=== PATIENT | male | born 1940 | race Caucasian/White ===

== ENCOUNTER 2016-12-29 10:03 | Inpatient (IN) | payer MEDICARE ==
[2016-12-29] VITALS (20 sets, daily range): BP systolic 144–221; BP diastolic 76–158; PULSE 73–101; RESP 16–31; TEMP 98.8–99; O2SAT 93–99
[~2016-12-29] VITALS: Ht 177.8 cm; Wt 77.1 kg
[2016-12-29] MEDS ORDERED: ASPIRIN 81 MG CHEW TAB PO ONE (10:30)
[2016-12-29] MEDS: NITROGLYCERIN 0.4 MG SL 25 TABS/BTL SL SCH ×3 (10:32→10:42)
[2016-12-29 10:58] LABS: AUTOMATED NEUTROPHIL # 8.5 TH/MM3 (1.8-7.7); BASOPHIL % 0.3 % (0.0-2.0); EOSINOPHIL % 0.3 % (0.0-4.0); HEMATOCRIT 32.7 % (39.0-51.0); HEMO FLAGS DIFF FINAL; LYMPH % 16.2 % (9.0-44.0); LYMPHOCYTE # 1.9 TH/MM3 (1.0-4.8); MEAN CELL VOLUME 92.1 FL (80.0-100.0); MEAN CORPUSCULAR HEMOGLOBIN 30.9 PG (27.0-34.0); MEAN CORPUSCULAR HGB CONC 33.6 % (32.0-36.0); MONO % 8.6 % (0.0-8.0); NEUT % 74.6 % (16.0-70.0); PLATELET COUNT 204 TH/MM3 (150-450); RED BLOOD COUNT 3.55 MIL/MM3 (4.50-5.90); WHITE BLOOD COUNT 11.4 TH/MM3 (4.0-11.0)
--- NOTE | 2016-12-29 11:01 | RADRPT ---
EXAM DATE/TIME: 12/29/2016 10:28 [facility] COMPARISON: No previous studies available for comparison. INDICATIONS : Chest pain. MEDICAL HISTORY : None. SURGICAL HISTORY : 3 cardiac stents. ENCOUNTER: Initial ACUITY: 2 days PAIN SCORE: 6/10 LOCATION: chest FINDINGS: Lungs are hyperinflated. Mild chronic interstitial vasculature changes are seen. There is no evidence of consolidating airspace disease. Heart is normal in size. CONCLUSION: No acute disease. Luis Weber MD on December 29, 2016 at 10:58 Board Certified Radiologist. This report was verified electronically.
[2016-12-29 11:06] LABS: APTT (PATIENT) 24.7 SEC (24.3-30.1); INTERNATIONAL NORMALIZED RATIO 0.9 RATIO; PROTHROMBIN TIME - PATIENT 10.2 SEC (9.8-11.6)
[2016-12-29 11:19] LABS: ANION GAP 12 MEQ/L (5-15); BICARBONATE 21.5 MEQ/L (21.0-32.0); BLOOD UREA NITROGEN 11 MG/DL (7-18); CHLORIDE 100 MEQ/L (98-107); GLOMERULAR FILTRATION RATE 66 ML/MIN (>89); MAGNESIUM 1.8 MG/DL (1.5-2.5); POTASSIUM 3.7 MEQ/L (3.5-5.1); SODIUM (NA) 133 MEQ/L (136-145)
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
[2016-12-29] MEDS ORDERED: hydrALAZINE HCL 20 MG/ML VIAL IV PUSH ONE (13:00)
[2016-12-29] MEDS: LORazepam 2 MG/ML VIAL IV PUSH PRN (14:11)
[2016-12-29] MEDS ORDERED: FLUMAZENIL 0.5 MG/5 ML VIAL IV PUSH PRN ×2 (14:15→16:45)
[2016-12-29] MEDS ORDERED: LORazepam 2 MG/ML VIAL IV PUSH PRN ×7 (14:15→16:45)
[2016-12-29] MEDS ORDERED: SODIUM CHLORIDE 0.9% FLUSH 10 ML FLUSH IV FLUSH PRN (15:30)
[2016-12-29] MEDS ORDERED: NITROGLYCERIN 0.4 MG SL 25 TABS/BTL SL PRN (15:45)
[2016-12-29] MEDS ORDERED: MORPHINE SULFATE 4 MG/ML INJ IV PUSH PRN (16:00)
[2016-12-29] MEDS ORDERED: ENALAPRILAT 2.5 MG/2 ML VIAL IV PUSH ONE (16:30)
--- NOTE | 2016-12-29 16:42 | HHI.HP ---
[facility] Primary [facility] Physician No Primary Care Physician Admission Diagnosis Chest pain Diagnoses: Chief Complaint: Chest pain Travel History International Travel<30 Days: No Contact w/Intl Traveler <30 Da: No Traveled to Known Affected Are: No History of Present Illness Patient is a 76-year-old gentleman with a history of coronary artery disease and stenting. He came to the emergency room with 2 days of intermittent nonradiating substernal chest discomfort which was moderate to severe. Patient describes it as tightness and worse with eating and exertion. He has a history also of hypertension and has not been taking any kind of medications for this. He reports being drunk with his friends in [place] and arriving about a week ago today [facility]. [place] defined "a retirement to live". His cardiac enzymes are unremarkable and his EKG does not show any signs of ischemic changes per my review. Patient does have hypertension and his blood pressure has been in the 220s over 120s here after Vasotec and hydralazine blood pressure is 174/101. Pain is better. Patient has been recommended for observation the hospital due to atypical chest discomfort. Review of Systems Constitutional: DENIES: Diaphoretic episodes, Fatigue, Fever, Weight gain, Weight loss, Chills, Dizziness, Change in appetite, Night Sweats Endocrine: DENIES: Heat/cold intolerance, Polydipsia, Polyuria, Polyphagia Eyes: DENIES: Blurred vision, Diplopia, Eye inflammation, Eye pain, Vision loss , Photosensitivity, Double Vision Ears, nose, mouth, throat: DENIES: Tinnitus, Hearing loss, Vertigo, Nasal discharge, Oral lesions, Throat pain, Hoarseness, Ear Pain, Running Nose, Epistaxis, Sinus Pain, Toothache, Odynophagia Respiratory: DENIES: Apneas, Cough, Snoring, Wheezing, Hemoptysis, Sputum production, Shortness of breath Cardiovascular: COMPLAINS OF: Chest pain, Palpitations, DENIES: Syncope, Dyspnea on Exertion, PND, Lower Extremity Edema, Orthopnea, Claudication Gastrointestinal: DENIES: Abdominal pain, Black stools, Bloody stools, Constipation, Diarrhea, Nausea, Vomiting, Difficulty Swallowing, Anorexia Genitourinary: DENIES: Sexual dysfunction, Urinary frequency, Urinary incontinence, Urgency, Hematuria, Dysuria, Nocturia, Penile Discharge, Testicular Pain, Testicular Swelling Musculoskeletal: DENIES: Joint pain, Muscle aches, Stiffness, Joint Swelling, Back pain, Neck pain Integumentary: DENIES: Abnormal pigmentation, Nail changes, Pruritus, Rash Hematologic/lymphatic: DENIES: Bruising, Lymphadenopathy Neurologic: DENIES: Abnormal gait, Headache, Localized weakness, Paresthesias, Seizures, Speech Problems, Tremor, Poor Balance Psychiatric: DENIES: Anxiety, Confusion, Mood changes, Depression, Hallucinations, Agitation, Suicidal Ideation, Homicidal Ideation, Delusions Except as stated in HPI: all other systems reviewed are Neg Past Family Social History Past Medical History Hypertension Coronary artery disease with stents Alcohol dependency Past Surgical History Inguinal hernia repair Cardiac stenting Reported Medications None per patient (nonadherent) Allergies: Coded Allergies: No Known Allergies (Unverified , 12/29/16) Active Ordered Medications Reviewed in the EMR Family History Brother and sister had Hodgkin's lymphoma Father had emphysema and coronary disease Social History From [place] and [facility] No tobacco Drinks at least a fifth of vodka a day Physical Exam Vital Signs Vital Signs Date Time Temp Pulse Resp B/P (MAP) Pulse Ox O2 Delivery O2 Flow Rate FiO2 12/29/16 15:58 81 20 217/108 (144) 99 Nasal Cannula 2.00 12/29/16 15:00 83 220/106 (144) 99 Nasal Cannula 2.00 12/29/16 14:00 90 16 194/92 (126) 98 Nasal Cannula 2.00 12/29/16 13:30 80 203/99 (133) 12/29/16 13:05 82 18 204/94 (130) 97 Nasal Cannula 2.00 12/29/16 13:00 82 193/103 (133) Nasal Cannula 2.00 12/29/16 12:50 82 18 205/106 (139) 98 Nasal Cannula 2.00 12/29/16 12:45 82 205/106 (139) 12/29/16 11:30 88 18 191/104 (133) 98 Nasal Cannula 2.00 12/29/16 10:58 84 18 180/101 (127) 96 Nasal Cannula 2.00 12/29/16 10:23 90 31 202/99 (133) 99 Nasal Cannula 2.00 12/29/16 10:16 Room Air 12/29/16 10:16 99.0 101 31 221/100 (140) 93 Physical Exam GENERAL: This is a malnourished, frail well-developed patient,tremors SKIN: No rashes, ecchymoses or lesions. Cool and dry. HEAD: Atraumatic. Normocephalic. No temporal or scalp tenderness. EYES: Pupils equal round and reactive. Extraocular motions intact. No scleral icterus. No injection or drainage. ENT: Nose without bleeding, purulent drainage or septal hematoma. Throat without erythema, tonsillar hypertrophy or exudate. Uvula midline. Airway patent. NECK: Trachea midline. No JVD or lymphadenopathy. Supple, nontender, no meningeal signs. CARDIOVASCULAR: Regular rate and rhythm without murmurs, gallops, or rubs. RESPIRATORY: Clear to auscultation. Breath sounds equal bilaterally. No wheezes , rales, or rhonchi. GASTROINTESTINAL: Abdomen soft, non-tender, nondistended. No hepato-splenomegaly , or palpable masses. No guarding. MUSCULOSKELETAL: Extremities without clubbing, cyanosis, or edema. No joint tenderness, effusion, or edema noted. No calf tenderness. Negative Homans sign bilaterally. NEUROLOGICAL: Awake and alert. Cranial nerves II through XII intact. Motor and sensory grossly within normal limits. Five out of 5 muscle strength in all muscle groups. Normal speech. Laboratory Laboratory Tests Test 12/29/16 10:20 White Blood Count 11.4 Red Blood Count 3.55 Hemoglobin 11.0 Hematocrit 32.7 Mean Corpuscular Volume 92.1 Mean Corpuscular Hemoglobin 30.9 Mean Corpuscular Hemoglobin Concent 33.6 Red Cell Distribution Width 15.0 Platelet Count 204 Mean Platelet Volume 9.0 Neutrophils (%) (Auto) 74.6 Lymphocytes (%) (Auto) 16.2 Monocytes (%) (Auto) 8.6 Eosinophils (%) (Auto) 0.3 Basophils (%) (Auto) 0.3 Neutrophils # (Auto) 8.5 Lymphocytes # (Auto) 1.9 Monocytes # (Auto) 1.0 Eosinophils # (Auto) 0.0 Basophils # (Auto) 0.0 CBC Comment DIFF FINAL Differential Comment Prothrombin Time 10.2 Prothromb Time International Ratio 0.9 Activated Partial Thromboplast Time 24.7 Blood Urea Nitrogen 11 Creatinine 1.08 Random Glucose 92 Calcium Level 8.5 Magnesium Level 1.8 Sodium Level 133 Potassium Level 3.7 Chloride Level 100 Carbon Dioxide Level 21.5 Anion Gap 12 Estimat Glomerular Filtration Rate 66 Troponin I LESS THAN 0.02 Ethyl Alcohol Level 129 Result Diagram: 12/29/16 1020 12/29/16 1020 Imaging Last Impressions Chest X-Ray 12/29/16 1025 Signed Impressions: Service Date/Time: Thursday, December 29, 2016 10:28 - CONCLUSION: No acute disease. MD Rochelle Wen VTE Risk Assessment Rochelle VTE Risk Assessment: Mod/High Risk (score >= 2) Caprini Risk Assessment Model Point Value = 1 Point Value = 2 Point Value = 3 Point Value = 5 Age 41-60 Minor surgery BMI > 25 kg/m2 Swollen legs Varicose veins or History of unexplained or recurrent spontaneous Oral contraceptives or hormone replacement Sepsis (< 1 month) Serious lung disease, including pneumonia (< 1 month) Abnormal pulmonary function Acute myocardial infarction Congestive heart failure (< 1 month) History of inflammatory bowel disease Medical patient at bed rest Age 61-74 Arthroscopic surgery Major open surgery (> 45 min) Laparoscopic surgery (> 45 min) Malignancy Confined to bed (> 72 hours) Immobilizing plaster cast Central venous access Age >= 75 History of VTE Family history of VTE Factor V Leiden Prothrombin [id number] Lupus anticoagulant Anticardiolipin antibodies Elevated serum homocysteine Heparin-induced thrombocytopenia Other congenital or acquired thrombophilia Stroke (< 1 month) Elective arthroplasty Hip, pelvis, or leg fracture Acute spinal cord injury (< 1 month) Prophylaxis Regimen Total Risk Factor Score Risk Level Prophylaxis Regimen 0-1 Low Early ambulation 2 Moderate Order ONE of the following: *Sequential Compression Device (SCD) *Heparin 5000 units SQ BID 3-4 Higher Order ONE of the following medications: *Heparin 5000 units SQ TID *Enoxaparin/Lovenox 40 mg SQ daily (WT < 150 kg, CrCl > 30 mL/min) *Enoxaparin/Lovenox 30 mg SQ daily (WT < 150 kg, CrCl > 10-29 mL/min) *Enoxaparin/Lovenox 30 mg SQ BID (WT < 150 kg, CrCl > 30 mL/min) AND/OR *Sequential Compression Device (SCD) 5 or more Highest Order ONE of the following medications: *Heparin 5000 units SQ TID (Preferred with Epidurals) *Enoxaparin/Lovenox 40 mg SQ daily (WT < 150 kg, CrCl > 30 mL/min) *Enoxaparin/Lovenox 30 mg SQ daily (WT < 150 kg, CrCl > 10-29 mL/min) *Enoxaparin/Lovenox 30 mg SQ BID (WT < 150 kg, CrCl > 30 mL/min) AND *Sequential Compression Device (SCD) Assessment and Plan Problem List: (1) EtOH dependence ICD Code: F10.20 - Alcohol dependence, uncomplicated Plan: ciwa protocol Librium 3 times a day Follow for signs and symptoms of withdrawal Follow electrolytes (2) Hypertensive urgency ICD Code: I16.0 - Hypertensive urgency Plan: patient with a Hx on nonadherence to medical treatment and does not konw his medications Will continue with a beta deloris given his history of coronary artery disease, and Vasotec as needed (3) Chest pain ICD Code: R07.9 - Chest pain, unspecified Status: Acute Plan: Atypical chest pain with patient admitting he has coronary artery disease and stents Previous evaluations and "early". Patient does not recall where. He is transient. Ermelinda scan in a.m. Continue following cardiac enzymes Beta deloris, aspirin, nitroglycerin, heparin Continue telemetry Add PPI Assessment and Plan homeless, Code Status full code Problem Qualifiers (1) Chest pain: Qualified Codes: R07.9 - Chest pain, unspecified Elisabeth Mendosa MD Dec 29, 2016 16:42
[2016-12-29] MEDS ORDERED: LORazepam 2 MG TAB PO PRN (16:45)
[2016-12-29] MEDS ORDERED: LORazepam 1 MG TAB PO PRN (16:45)
[2016-12-29] MEDS: CARVEDILOL 12.5 MG TAB PO SCH (17:10)
[2016-12-29] MEDS: PANTOPRAZOLE SOD 40 MG DELAYED RELEASE TAB PO SCH (17:12)
[2016-12-29] MEDS: cloNIDine HCL 0.1 MG TAB PO PRN (17:18)
[2016-12-29 18:19] LABS: CREATINE KINASE 109 U/L (39-308)
[2016-12-29] MEDS: HEPARIN SODIUM - SQ 10,000 UNITS/ML VIAL SQ SCH (21:01)
[2016-12-29] MEDS: SODIUM CHLORIDE 0.9% FLUSH 10 ML FLUSH IV FLUSH SCH (21:02)
[2016-12-29 23:49] LABS: CREATINE KINASE 86 U/L (39-308)
[2016-12-30] VITALS (7 sets, daily range): BP systolic 134–159; BP diastolic 63–82; PULSE 62–82; RESP 17–24; TEMP 97.3–99.4; O2SAT 93–98
[2016-12-30] MEDS: LORazepam 1 MG TAB PO PRN (05:06)
[2016-12-30] MEDS: HEPARIN SODIUM - SQ 10,000 UNITS/ML VIAL SQ SCH ×3 (05:06→21:35)
[2016-12-30] MEDS: PANTOPRAZOLE SOD 40 MG DELAYED RELEASE TAB PO SCH (09:22)
[2016-12-30] MEDS: ASPIRIN 325 MG TAB PO SCH (09:22)
[2016-12-30] MEDS: SODIUM CHLORIDE 0.9% FLUSH 10 ML FLUSH IV FLUSH SCH ×2 (09:23→21:00)
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
[2016-12-30] MEDS: chlordiazePOXIDE 25 MG CAP PO SCH ×4 (09:34→21:34)
[2016-12-30] MEDS: POTASSIUM CHLORIDE INJ 10 MEQ in DEXT 5%-NACL 0.9% 1000 ML INJ 1,000 ML IV SCH (09:59)
--- NOTE | 2016-12-30 11:10 | EKG ---
Date Performed: 12/29/2016 Time Performed: 10:18:40 PTAGE: 76 years EKG: Sinus rhythm POSSIBLE INFERIOR MYOCARDIAL INFARCTION BORDERLINE ECG INTERPRETATION BASED ON A DEFAULT AGE OF 39 Y EARS NO PREVIOUS TRACING DOCTOR: Mohit Spangler Interpretating Date/Time 12/30/2016 11:09:18
--- NOTE | 2016-12-30 11:10 | EKG ---
Date Performed: 12/29/2016 Time Performed: 14:00:31 PTAGE: 76 years EKG: Sinus rhythm INFERIOR MYOCARDIAL INFARCTION ABNORMAL ECG INTERPRETATION BASED ON A DEFAULT AGE OF 40 YEARS PREVIOUS TRACING : 12/29/2016 10.18 Since previous tracing, no significant change noted DOCTOR: Mohit Spangler Interpretating Date/Time 12/30/2016 11:08:24
[2016-12-30] MEDS ORDERED: REGADENOSON INJ 0.4 MG/5 ML SYR ONE (13:31)
[2016-12-30] MEDS: CARVEDILOL 12.5 MG TAB PO SCH ×2 (14:50→21:34)
--- NOTE | 2016-12-30 15:08 | RADRPT ---
EXAM DATE/TIME: 12/30/2016 13:07 [facility] COMPARISON: No previous studies available for comparison. INDICATIONS : Substenal chest pain. Angina. Myocardial infarction. DOSE: 25.6 mCi Tc99m Myoview at stress. 8.1 mCi Tc99m Myoview at rest. 0.4 mg Lexiscan STRESS SYMPTOMS: None. EJECTION FRACTION: 59% MEDICAL HISTORY : Cardiovascular disease. Hypertension. SURGICAL HISTORY : Coronary artery stent. Inguinal hernia repair. ENCOUNTER: Initial ACUITY: 1 day PAIN SCALE: 3/10 LOCATION: Substernal chest TECHNIQUE: The patient underwent pharmacologic stress with infusion of prescribed dose. Continuous ECG tracing was monitored during stress. Gated SPECT imaging was performed after stress and conventional SPECT i maging was performed at rest. The examination was performed on a SPECT/CT scanner, both attenuation and non-corrected datasets were reviewed. FINDINGS: DISTRIBUTION: The maximum perfused segment at stress is in the inferolateral wall. PERFUSION STUDY: The pattern of perfusion at stress shows some thickening of perfusion to the apex. There is in the mi d and low inferoseptal wall. GATED STUDY: There is intact wall motion and thickening without hypokinetic or dyskinetic segments. CONCLUSION: 1. Focal area of 20% redistribution in the mid and low inferoseptal wall concerning for a focal area of ischemia. 2. Mild apical thinning. 3. Adequate wall motion throughout with estimated ejection fraction of 59%. RISK CATEGORY: Intermediate (1-3% Annual Mortality Rate) Josesito Arrieta MD on December 30, 2016 at 15:04 Board Certified Radiologist. This report was verified electronically.
[2016-12-30] MEDS: ACETAMINOPHEN 500 MG CPLT PO PRN (21:42)
[2016-12-31] VITALS: BP 163/74; PULSE 55; RESP 20; TEMP 98.5; O2SAT 94
[2016-12-31] MEDS: chlordiazePOXIDE 25 MG CAP PO SCH ×6 (01:37→20:53)
[2016-12-31] MEDS: POTASSIUM CHLORIDE INJ 10 MEQ in DEXT 5%-NACL 0.9% 1000 ML INJ 1,000 ML IV SCH ×2 (01:38→12:57)
[2016-12-31 04:00] VITALS: BP 143/68; PULSE 61; RESP 18; TEMP 97.4; O2SAT 97
[2016-12-31] MEDS: HEPARIN SODIUM - SQ 10,000 UNITS/ML VIAL SQ SCH ×3 (05:52→20:53)
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
[2016-12-31 08:00] VITALS: BP 137/67; PULSE 60; RESP 18; TEMP 97.8; O2SAT 98
[2016-12-31 08:32] LABS: ANION GAP 8 MEQ/L (5-15); AST (GOT) 38 U/L (15-37); BICARBONATE 24.3 MEQ/L (21.0-32.0); BLOOD UREA NITROGEN 18 MG/DL (7-18); CHLORIDE 105 MEQ/L (98-107); GLOMERULAR FILTRATION RATE 60 ML/MIN (>89); SODIUM (NA) 137 MEQ/L (136-145)
[2016-12-31 08:35] LABS: ALKALINE PHOSPHATASE 67 U/L (45-117); ALT (GPT) 49 U/L (12-78); HDL CHOLESTEROL 92.7 MG/DL (40.0-60.0); LDL CHOLESTEROL 64 MG/DL (0-99); TOTAL BILIRUBIN ADULT 0.2 MG/DL (0.2-1.0)
[2016-12-31] MEDS: LORazepam 2 MG/ML VIAL IV PUSH PRN ×2 (08:37→13:02)
[2016-12-31] MEDS: ASPIRIN 325 MG TAB PO SCH (10:12)
[2016-12-31] MEDS: PANTOPRAZOLE SOD 40 MG DELAYED RELEASE TAB PO SCH (10:12)
[2016-12-31] MEDS: CARVEDILOL 12.5 MG TAB PO SCH ×2 (10:12→20:53)
[2016-12-31] MEDS: SODIUM CHLORIDE 0.9% FLUSH 10 ML FLUSH IV FLUSH SCH ×2 (10:13→20:54)
[2016-12-31] MEDS: ISOSORBIDE MONONITRATE 30 MG TAB PO SCH (10:14)
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
[2016-12-31] MEDS ORDERED: CLOPIDOGREL 300 MG TAB PO ONE (11:30)
[2016-12-31 12:00] VITALS: BP 158/89; PULSE 73; RESP 18; TEMP 97.3; O2SAT 96
[2016-12-31 16:00] VITALS: BP 159/79; PULSE 67; RESP 18; TEMP 98.1; O2SAT 98
[2016-12-31 20:00] VITALS: BP 143/65; PULSE 65; PULSE 70; RESP 16; TEMP 98.1; O2SAT 98
[2016-12-31] MEDS: ATORVASTATIN 20 MG TAB PO SCH (20:53)
[2016-12-31] MEDS: ACETAMINOPHEN 500 MG CPLT PO PRN (20:53)
[2017-01-01] VITALS (7 sets, daily range): BP systolic 101–169; BP diastolic 55–80; PULSE 59–68; RESP 18–20; TEMP 97.2–98.7; O2SAT 95–100
[2017-01-01] MEDS: LORazepam 1 MG TAB PO PRN (00:19)
[2017-01-01] MEDS: cloNIDine HCL 0.1 MG TAB PO PRN (00:19)
[2017-01-01] MEDS: chlordiazePOXIDE 25 MG CAP PO SCH ×6 (00:20→21:25)
[2017-01-01] MEDS: HEPARIN SODIUM - SQ 10,000 UNITS/ML VIAL SQ SCH ×3 (05:51→21:25)
[2017-01-01] MEDS: ISOSORBIDE MONONITRATE 30 MG TAB PO SCH (06:00)
[2017-01-01] MEDS: PANTOPRAZOLE SOD 40 MG DELAYED RELEASE TAB PO SCH (07:46)
[2017-01-01] MEDS: SODIUM CHLORIDE 0.9% FLUSH 10 ML FLUSH IV FLUSH SCH ×2 (07:47→21:26)
[2017-01-01] MEDS: CARVEDILOL 12.5 MG TAB PO SCH ×2 (07:47→21:26)
[2017-01-01] MEDS: ASPIRIN 81 MG CHEW TAB CHEW SCH (07:47)
[2017-01-01] MEDS: CLOPIDOGREL 75 MG TAB PO SCH (07:47)
[2017-01-01] MEDS: POTASSIUM CHLORIDE INJ 10 MEQ in DEXT 5%-NACL 0.9% 1000 ML INJ 1,000 ML IV SCH (07:48)
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
[2017-01-01] MEDS ORDERED: amLODIPine BESYLATE 5 MG TAB PO SCH (09:00)
[2017-01-01] MEDS: LORazepam 2 MG/ML VIAL IV PUSH PRN (17:53)
--- NOTE | 2017-01-01 18:02 | PD.CARD.PN ---
Subjective Subjective Remarks Patient very anxious and moving all over the place Objective Medications Current Medications Medications (Trade) Dose Ordered Sig/Muna Route Start Time Stop Time Status Last Admin (Romazicon Inj) 0.2 mg Q1M PRN IV PUSH 12/29/16 14:15 (Ativan) 1 mg Q4H PRN PO 12/29/16 14:15 01/01/17 00:19 (Ativan Inj) 1 mg Q4H PRN IV PUSH 12/29/16 14:15 (Ativan) 2 mg Q2H PRN PO 12/29/16 14:15 (Ativan Inj) 2 mg Q2H PRN IV PUSH 12/29/16 14:15 01/01/17 17:53 (Ativan Inj) 2 mg Q1H PRN IV PUSH 12/29/16 14:15 (Ativan Inj) 2 mg Q15M PRN IV PUSH 12/29/16 14:15 (NS Flush) 2 ml BID IV FLUSH 12/29/16 21:00 01/01/17 07:47 (NS Flush) 2 ml UNSCH PRN IV FLUSH 12/29/16 15:30 (Nitrostat Sl) 0.4 mg Q5M PRN SL 12/29/16 15:45 (Tylenol) 500 mg Q4H PRN PO 12/29/16 15:30 12/31/16 20:53 (Morphine Inj) 2 mg Q5M PRN IV PUSH 12/29/16 16:00 (Coreg) 12.5 mg Q12HR PO 12/29/16 21:00 01/01/17 07:47 (Romazicon Inj) 0.2 mg Q1M PRN IV PUSH 12/29/16 16:45 (Ativan) 1 mg Q4H PRN PO 12/29/16 16:45 (Ativan Inj) 1 mg Q4H PRN IV PUSH 12/29/16 16:45 (Ativan) 2 mg Q2H PRN PO 12/29/16 16:45 (Ativan Inj) 2 mg Q2H PRN IV PUSH 12/29/16 16:45 (Ativan Inj) 2 mg Q1H PRN IV PUSH 12/29/16 16:45 (Ativan Inj) 2 mg Q15M PRN IV PUSH 12/29/16 16:45 (Protonix) 40 mg DAILY PO 12/29/16 16:45 01/01/17 07:46 (Heparin Inj) 5,000 units Q8HR SQ 12/29/16 22:00 01/01/17 14:49 (Catapres) 0.1 mg Q6H PRN PO 12/29/16 17:15 01/01/17 00:19 (Librium) 50 mg Q4H PO 12/30/16 09:30 01/01/17 17:09 Potassium Chloride 10 meq/ Dextrose/Sodium Chloride 1,005 ml @ 50 mls/hr Q20H6M IV 12/31/16 10:00 01/01/17 07:48 (Imdur) 30 mg DAILY@07 PO 12/31/16 08:00 01/01/17 06:00 (Lipitor) 20 mg HS PO 12/31/16 21:00 12/31/16 20:53 (Aspirin Chew) 81 mg DAILY CHEW 01/01/17 09:00 01/01/17 07:47 (Plavix) 75 mg DAILY PO 01/01/17 09:00 01/01/17 07:47 (Norvasc) 5 mg DAILY PO 01/01/17 09:00 01/01/17 12:37 Vital Signs / I&O Vital Signs Date Time Temp Pulse Resp B/P (MAP) Pulse Ox O2 Delivery O2 Flow Rate FiO2 01/01/17 16:00 98.4 64 18 150/70 (96) 95 01/01/17 14:14 Nasal Cannula 2.00 01/01/17 12:00 97.2 62 18 101/55 (70) 98 01/01/17 08:00 97.5 59 18 140/65 (90) 98 01/01/17 04:00 98.7 64 20 167/79 (108) 98 01/01/17 00:00 97.8 61 18 169/77 (107) 100 12/31/16 20:00 70 12/31/16 20:00 Nasal Cannula 2.00 12/31/16 20:00 98.1 65 16 143/65 (91) 98 I/O 12/31/16 12/31/16 12/31/16 01/01/17 01/01/17 01/01/17 07:00 15:00 23:00 07:00 15:00 23:00 Intake Total 1298 ml 1215 ml 1105 ml 355.3 ml 720 ml Output Total 1100 ml 900 ml 1500 ml 300 ml Balance 198 ml 315 ml -395 ml 355.3 ml 420 ml Intake Oral 240 ml 480 ml 360 ml 720 ml IV Total 1058 ml 735 ml 745 ml 355.3 ml Output Urine Total 1100 ml 900 ml 1500 ml 300 ml Stool Total 0 ml # Bowel Movements 0 0 Physical Exam GENERAL: Anxious, AAOx3 SKIN: Warm and dry. HEAD: Atraumatic. Normocephalic. EYES: Pupils equal and round. No scleral icterus. No injection or drainage. ENT: No nasal bleeding or discharge. Mucous membranes pink and moist. NECK: Trachea midline. No JVD. CARDIOVASCULAR: Regular rate and rhythm. RESPIRATORY: No accessory muscle use. Clear to auscultation. Breath sounds equal bilaterally. GASTROINTESTINAL: Abdomen soft, non-tender, nondistended. Hepatic and splenic margins not palpable. MUSCULOSKELETAL: Extremities without clubbing, cyanosis, or edema. No obvious deformities. NEUROLOGICAL: Awake and alert. No obvious cranial nerve deficits. Motor grossly within normal limits. Five out of 5 muscle strength in the arms and legs. Normal speech. Still with asterixis PSYCHIATRIC: Still anxious, appears to be withdrawing Assessment and Plan Problem List: (1) Abnormal stress test ICD Codes: R94.39 - Abnormal result of other cardiovascular function study (2) Chest pain ICD Codes: R07.9 - Chest pain, unspecified Status: Acute (3) Hypertensive urgency ICD Codes: I16.0 - Hypertensive urgency (4) EtOH dependence ICD Codes: F10.20 - Alcohol dependence, uncomplicated Assessment and Plan 1) Plan for cardiac catheterization, but appears to be still anxious and withdrawing Will hold off for tomorrow, possible 2) Ativan/Librium for withdrawal 3) Hx of CAD with stenting Abnormal stress test Problem Qualifiers (1) Chest pain: Qualified Codes: R07.9 - Chest pain, unspecified Familia Loyola DO Jan 01, 2017 18:02
[2017-01-01] MEDS: LORazepam 2 MG TAB PO PRN ×2 (19:50→22:10)
[2017-01-01] MEDS: ACETAMINOPHEN 500 MG CPLT PO PRN (19:50)
[2017-01-01] MEDS ORDERED: ZOLPIDEM TARTRATE 5 MG TAB PO ONE (21:15)
[2017-01-01] MEDS: ATORVASTATIN 20 MG TAB PO SCH (21:25)
[2017-01-02] VITALS (9 sets, daily range): BP systolic 125–181; BP diastolic 63–85; PULSE 56–66; RESP 16–18; TEMP 97.3–98.2; O2SAT 95–100
[2017-01-02] MEDS: chlordiazePOXIDE 25 MG CAP PO SCH ×2 (01:45→05:00)
[2017-01-02] MEDS: POTASSIUM CHLORIDE INJ 10 MEQ in DEXT 5%-NACL 0.9% 1000 ML INJ 1,000 ML IV SCH ×2 (03:05→23:46)
[2017-01-02] MEDS: LORazepam 2 MG TAB PO PRN ×2 (03:41→05:49)
[2017-01-02] MEDS: ACETAMINOPHEN 500 MG CPLT PO PRN ×2 (03:42→08:28)
[2017-01-02] MEDS: cloNIDine HCL 0.1 MG TAB PO PRN (05:00)
[2017-01-02] MEDS: HEPARIN SODIUM - SQ 10,000 UNITS/ML VIAL SQ SCH ×3 (05:01→22:28)
[2017-01-02] MEDS: ISOSORBIDE MONONITRATE 30 MG TAB PO SCH (05:49)
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
[2017-01-02] MEDS: CLOPIDOGREL 75 MG TAB PO SCH (08:27)
[2017-01-02] MEDS: PANTOPRAZOLE SOD 40 MG DELAYED RELEASE TAB PO SCH (08:27)
[2017-01-02] MEDS: ASPIRIN 81 MG CHEW TAB CHEW SCH (08:28)
[2017-01-02] MEDS: CARVEDILOL 12.5 MG TAB PO SCH ×2 (08:28→22:28)
[2017-01-02] MEDS: SODIUM CHLORIDE 0.9% FLUSH 10 ML FLUSH IV FLUSH SCH ×2 (08:28→21:00)
[2017-01-02] MEDS ORDERED: chlordiazePOXIDE 25 MG CAP PO PRN (11:00)
[2017-01-02] MEDS: DOCUSATE SODIUM 50 MG/SENNA 8.6 MG TAB PO SCH (16:47)
--- NOTE | 2017-01-02 16:51 | ECHRPT ---
Indication: Cardiomyopathy, unspecified CONCLUSIONS The left ventricular systolic function is low normal with an estimated ejection fraction in the rang e of 50- 55%. Mild concentric left ventricular hypertrophy. Normal left ventricular size. There is mild to moderate tricuspid valve regurgitation. The estimated pulmonary arterial pressure is 38.1 mmHg. Diffuse calcification of the aortic valve. Trileaflet aortic valve. BP: 158 / 89 HR: 73 Rhythm: Sinus MEASUREMENTS (Male / Female) Normal Values Technical Quality:Fair 2D ECHO LV Diastolic Diameter PLAX 4.9 cm 4.2 - 5.9 / 3.9 - 5.3 cm LV Systolic Diameter PLAX 3.8 cm IVS Diastolic Thickness 1.1 cm 0.6 - 1.0 / 0.6 - 0.9 cm LVPW Diastolic Thickness 1.2 cm 0.6 - 1.0 / 0.6 - 0.9 cm LV Relative Wall Thickness 0.5 LVOT Diameter 2.2 cm M-MODE Aortic Root Diameter MM 3.6 cm LA Systolic Diameter MM 3.8 cm LA Ao Ratio MM 1.1 AV Cusp Separation MM 2.2 cm DOPPLER AV Peak Velocity 155.0 cm/s AV Peak Gradient 9.6 mmHg LVOT Peak Velocity 86.4 cm/s LVOT Peak Gradient 3.0 mmHg AV Area Cont Eq pk 2.1 cm Mitral E Point Velocity 73.1 cm/s Mitral A Point Velocity 69.1 cm/s Mitral E to A Ratio 1.1 LV E' Lateral Velocity 11.0 cm/s Mitral E to LV E' Lateral Ratio 6.6 LV E' Septal Velocity 6.5 cm/s Mitral E to LV E' Septal Ratio 11.2 TR Peak Velocity 265.0 cm/s TR Peak Gradient 28.1 mmHg Right Atrial Pressure 10.0 mmHg Pulmonary Artery Systolic Pressu 38.1 mmHg Right Ventricular Systolic Press 38.1 mmHg PV Peak Velocity 102.0 cm/s PV Peak Gradient 4.2 mmHg FINDINGS LEFT VENTRICLE The left ventricular systolic function is low normal with an estimated ejection fraction in the rang e of 50- 55%. Mild concentric left ventricular hypertrophy. Normal left ventricular size. RIGHT VENTRICLE Normal right ventricular size and systolic function. LEFT ATRIUM The left atrial size is normal. RIGHT ATRIUM The right atrial size is normal. ATRIAL SEPTUM Normal atrial septal thickness without atrial level shunting by limited color doppler interrogation. AORTA The aortic root and proximal ascending aorta are normal in size on limited imaging. MITRAL VALVE Structurally normal mitral valve. No mitral valve stenosis or regurgitation. AORTIC VALVE Diffuse calcification of the aortic valve. No AV stenosis. Trileaflet aortic valve. TRICUSPID VALVE There is mild to moderate tricuspid valve regurgitation. The estimated pulmonary arterial pressure is 38.1 mmHg. PULMONARY VALVE No pulmonary valve regurgitation or stenosis. VESSELS The inferior vena cava is normal in size. PERICARDIUM No pericardial effusion. Raza Farias MD (Electronically Signed) Final Date:02 January 2017 16:50
--- NOTE | 2017-01-02 20:55 | PD.CARD.PN ---
Subjective Subjective Remarks Patient resting comfortably, awakens to questions Objective Medications Current Medications Medications (Trade) Dose Ordered Sig/Muna Route Start Time Stop Time Status Last Admin (NS Flush) 2 ml BID IV FLUSH 12/29/16 21:00 01/01/17 07:47 (NS Flush) 2 ml UNSCH PRN IV FLUSH 12/29/16 15:30 (Nitrostat Sl) 0.4 mg Q5M PRN SL 12/29/16 15:45 (Tylenol) 500 mg Q4H PRN PO 12/29/16 15:30 01/02/17 08:28 (Morphine Inj) 2 mg Q5M PRN IV PUSH 12/29/16 16:00 (Coreg) 12.5 mg Q12HR PO 12/29/16 21:00 01/02/17 08:28 (Romazicon Inj) 0.2 mg Q1M PRN IV PUSH 12/29/16 16:45 (Ativan) 1 mg Q4H PRN PO 12/29/16 16:45 (Ativan Inj) 1 mg Q4H PRN IV PUSH 12/29/16 16:45 (Ativan) 2 mg Q2H PRN PO 12/29/16 16:45 (Ativan Inj) 2 mg Q2H PRN IV PUSH 12/29/16 16:45 (Ativan Inj) 2 mg Q1H PRN IV PUSH 12/29/16 16:45 (Ativan Inj) 2 mg Q15M PRN IV PUSH 12/29/16 16:45 (Protonix) 40 mg DAILY PO 12/29/16 16:45 01/02/17 08:27 (Heparin Inj) 5,000 units Q8HR SQ 12/29/16 22:00 01/02/17 13:45 (Catapres) 0.1 mg Q6H PRN PO 12/29/16 17:15 01/02/17 05:00 Potassium Chloride 10 meq/ Dextrose/Sodium Chloride 1,005 ml @ 50 mls/hr Q20H6M IV 12/31/16 10:00 01/02/17 03:05 (Imdur) 30 mg DAILY@07 PO 12/31/16 08:00 01/02/17 05:49 (Lipitor) 20 mg HS PO 12/31/16 21:00 01/01/17 21:25 (Aspirin Chew) 81 mg DAILY CHEW 01/01/17 09:00 01/02/17 08:28 (Plavix) 75 mg DAILY PO 01/01/17 09:00 01/02/17 08:27 (Norvasc) 10 mg DAILY PO 01/02/17 09:30 01/02/17 09:18 (Librium) 50 mg Q6H PRN PO 01/02/17 11:00 (Carey-Colace) 1 tab DAILY PO 01/02/17 16:15 01/02/17 16:47 Vital Signs / I&O Vital Signs Date Time Temp Pulse Resp B/P (MAP) Pulse Ox O2 Delivery O2 Flow Rate FiO2 01/02/17 20:21 97.6 65 18 144/67 (92) 95 01/02/17 19:44 Nasal Cannula 2.00 01/02/17 16:00 97.6 64 16 125/64 (84) 97 01/02/17 12:00 98.1 63 16 138/63 (88) 96 01/02/17 11:29 58 01/02/17 08:25 Nasal Cannula 2.00 01/02/17 08:00 98.2 56 16 164/79 (107) 100 01/02/17 06:36 177/83 (114) 01/02/17 04:00 97.4 58 18 181/85 (117) 97 01/02/17 00:00 97.3 64 16 170/80 (110) 98 I/O 01/01/17 01/01/17 01/01/17 01/02/17 01/02/17 01/02/17 07:00 15:00 23:00 07:00 15:00 23:00 Intake Total 1105 ml 355.3 ml 720 ml 786.7 ml 960 ml Output Total 1500 ml 550 ml 1000 ml 950 ml Balance -395 ml 355.3 ml 170 ml -213.3 ml 10 ml Intake Oral 360 ml 720 ml 960 ml IV Total 745 ml 355.3 ml 786.7 ml Output Urine Total 1500 ml 550 ml 1000 ml 950 ml # Voids 1 # Bowel Movements 0 0 Physical Exam GENERAL: Lethargic but awakens to questions SKIN: Warm and dry. HEAD: Atraumatic. Normocephalic. EYES: Pupils equal and round. No scleral icterus. No injection or drainage. ENT: No nasal bleeding or discharge. Mucous membranes pink and moist. NECK: Trachea midline. No JVD. CARDIOVASCULAR: Regular rate and rhythm. RESPIRATORY: No accessory muscle use. Clear to auscultation. Breath sounds equal bilaterally. GASTROINTESTINAL: Abdomen soft, non-tender, nondistended. Hepatic and splenic margins not palpable. MUSCULOSKELETAL: Extremities without clubbing, cyanosis, or edema. No obvious deformities. NEUROLOGICAL: No obvious cranial nerve deficits. Motor grossly within normal limits. Five out of 5 muscle strength in the arms and legs. Normal speech. Still with asterixis Assessment and Plan Problem List: (1) Abnormal stress test ICD Codes: R94.39 - Abnormal result of other cardiovascular function study (2) Chest pain ICD Codes: R07.9 - Chest pain, unspecified Status: Acute (3) Hypertensive urgency ICD Codes: I16.0 - Hypertensive urgency (4) EtOH dependence ICD Codes: F10.20 - Alcohol dependence, uncomplicated Assessment and Plan 1) Plan for cardiac catheterization tomorrow 2) Ativan/Librium for withdrawal 3) Hx of CAD with stenting Abnormal stress test mid to low inferior septum Problem Qualifiers (1) Chest pain: Qualified Codes: R07.9 - Chest pain, unspecified Familia Loyola DO Jan 02, 2017 20:55
[2017-01-02] MEDS: ATORVASTATIN 20 MG TAB PO SCH (22:28)
[2017-01-03] VITALS: BP 146/65; PULSE 65; RESP 18; TEMP 99; O2SAT 94
[2017-01-03 04:00] VITALS: BP 179/82; PULSE 61; RESP 16; TEMP 97.6; O2SAT 97
[2017-01-03] MEDS: HEPARIN SODIUM - SQ 10,000 UNITS/ML VIAL SQ SCH (06:08)
[2017-01-03] MEDS: cloNIDine HCL 0.1 MG TAB PO PRN (06:09)
[2017-01-03] MEDS: ISOSORBIDE MONONITRATE 30 MG TAB PO SCH (06:09)
[2017-01-03] MEDS ORDERED: HEPARIN-NS/PF INJ 1,000 ML ONE (08:39)
[2017-01-03] MEDS ORDERED: MIDAZOLAM HCL 2 MG/2 ML VIAL ONE (08:40)
[2017-01-03] MEDS ORDERED: VERAPAMIL HCL 5 MG/2 ML VIAL ONE (08:41)
[2017-01-03] MEDS ORDERED: HEPARIN SODIUM - IV 10,000 UNITS/10 ML VIAL ONE (08:42)
[2017-01-03] MEDS: CARVEDILOL 12.5 MG TAB PO SCH (09:00)
[2017-01-03] MEDS ORDERED: ADENOSINE STRESS TEST INJ 90 MG/30 ML VIAL ONE (09:09)
--- NOTE | 2017-01-03 09:40 | CATHPROC ---
[employer] HIS Report Study Information Study Number Scheduled Start Study Start [id number] 01/03/2017 Jan 03 2017 8:16AM Referring Institution Admit Source Facility Department 1 Other [facility] - Aircraft Machinist Physician and Clinical Staff Initial Familia Woodall Tool Room Lathe Operator Hailee Pham,MARISA Other cathlab, cathlab Recorder Anuj Mancini RCIS(BS) Scrub Elmer, Naomi,ELECTRIC NEEDLE SPECIALIST TECH2 Procedures Performed Procedure Location (Site) Vessel Name Coronary Angiograms LCA Left Coronary Coronary Angiograms RCA Right Coronary L Heart Cath Wire insertion Radial (right) Radial Art. Equipment Time Aircraft Machinist Description Size Mfg Part Number Used/Scraped TRANSDUCER, TRUWAVE [id number] 08:17 [employer]MENS * Used W/STOCKCOCK *[id number] *[id number] *[id number] *[id number] 08:17 [employer] PACK, CCL CUSTOM * Used *[id number] 08:17 [employer] SUPPORT, ARTERIAL ADULT [id number] *[id number] Used BAND, RADIAL COMPRESSION TR [id number] 09:27 [employer] MEDICAL 29CM Used LARGE 29 *[id number] 08:17 [employer] MEDICAL WIRE, EXCHANGE 260CM 3MMJ 260CM Used *[id number] 08:17 [employer] MANIFOLD, 4 PORT * Used *[id number] 08:17 [employer] OMNIPAQUE, 350 MG, 150ML 150ML [id number] Used [id number] 08:17 [employer] BLANKET,WARM AIR CCL * Used *[id number] SHEATH, FR6 TRANSRADIAL [id number] 08:17 [employer] MEDICAL FR 6 Used SLENDER 10CM *[id number] 09:07 [employer] PRIME WIRE, VERRATA 185CM 185CM [id number] *[id number] Used Equipment Model, Serial, Lot Number and Expiration Data Description Model Number Serial Number Lot Number Expiration Date PRIME WIRE, VERRATA 185CM [id number] 11-18-2019 History: Allergies Allergy Reaction No Known Allergies History: Risk Factors Family History of Dyslipidemia Previous MN Previous Heart Failure Premature CAD Yes No No No Prior Valve Prior PCI Prior CABG Surgery No Yes No Cerebrovascular Peripheral Artery Chronic Lung On Dialysis Diabetes Disease Disease Disease No No No No No History: Symptoms/Diagnosis Selection Items Chest pain History: Stress Tests Stress or Imaging Studies Performed Yes Standard Exercise Stress Test No Stress Echo No Stress Test SPECT Stress Test SPECT Result Stress Test SPECT Ischemia Risk/Extent Yes Positive Intermediate Stress Test CMR No Cardiac CTA Coronary Calcium Score No No History: Other Disease Selection Items CAD HTN History: Other Current Smoker Packs a Day Years Used Pack Years Yes 1 40 40 Labs Hgb (g/dl) Hct (%) WBC (l/cumm) Platelets (thousands) 11.60-17.00 35.00-51.00 4.00-11.00 150.00-450.00 11.0 32.7 11.4 204 Glucose (mg/dl) BUN (mg/dl) Creatinine (mg/dl) BUN:Creatinine (1:x) 74.00-106.00 7.00-18.00 0.50-1.30 10.00-20.00 107 18 1.1 16.4 Na (meq/l) K (meq/l) 136.00-145.00 3.50-5.10 137 4.6 INR (PTT:PT) 0.90-1.10 0.9 Troponin I (ng/ml) CPK (u/l) CPK-MB (ng/ML) 0.02-0.05 26.00-308.00 0.50-3.60 0.02 86 Not Drawn Medication Medication Total Dose (Bolus/Oral) Medication Total Dosage/Unit 1% XYLOCAINE 3 mL HEPARIN 4600 units RADIAL COCKTAIL 5 mL (Bolus) Medications (Bolus/Oral) Medication Time Given Dosage/Unit Administered By Reason 1% XYLOCAINE 01/03/2017 8:47:04 AM 3 mL Familia Loyola 3 mL 1% XYLOCAINE given in lab by Familia Loyola in Right Radial via Subcutaneous. Ntg 200mcg Verapamil 2.5mg Heparin RADIAL COCKTAIL 01/03/2017 8:48:20 AM 5 mL (Bolus) Familia Loyola 3000U 5 mL (Bolus) RADIAL COCKTAIL given in lab by Familia Loyola in Right Radial via Radial. Using [S olution Name]. Reason: Ntg 200mcg Verapamil 2.5mg Heparin 3000U. HEPARIN 01/03/2017 9:06:45 AM 4600 units Hailee Pham 4600 units HEPARIN given in lab by Hailee Pham RN in Left Forearm via Peripheral IV. Ordered by Familia Duran Medication (Drip) Medication Time Given Dosage/Unit Concentration/Unit Diluent (ml) Solutio n ADENOSINE DRIP 01/03/2017 9:20:23 AM 140.043 mcg/kg/min 90 mg 90 NaCl .9 140.043 mcg/kg/min ADENOSINE DRIP given in lab by Hailee Pham RN in Left Forearm via Peripheral I V. Pump/Drip Flow = 647 ml/hr using NaCl .9 with a concentration of 90 mg in 90 ml. Ordered by Familia Loyola ADENOSINE DRIP 01/03/2017 9:22:40 AM 0 units/hr 0 D5W STOPPED 0 units/hr ADENOSINE DRIP STOPPED given in lab by Hailee Pham RN in Left Forearm via Peripheral I V. Pump/Drip Flow = 0 ml/hr using D5W. Ordered by Familia Loyola IV Solutions 01/03/2017 8:16:33 AM 0 mL (IV) 500 NaCl .9 Patient arrived on IV Solutions given by cathdeborah cameron in Left Antecubital via Peripheral IV. Pump /Drip Flow = 20 ml/hr using NaCl .9. Ordered by Familia Loyola Initial Case Assessment Cardiovascular HR Rhythm NIBP Chest Pain 63 nsr 158/84 0 Edema Present Skin None Warm Dry Circulatory - Right Pulses Dorsalis Pedis Femoral Radial 2 1 2 Scale (0,1,2,3,4,d) Circulatory - Left Pulses Dorsalis Pedis Femoral Radial 2 1 Scale (0,1,2,3,4,d) Neurological State Oriented to time-place- Alert Moves all extremities person Respiration - General Respiration Rate SpO2 (%) (B/min) 15 97 Initial Case Assessment Cardiovascular HR Rhythm NIBP Chest Pain 67 nsr 169/93 0 Edema Present Skin None Warm Dry Circulatory - Right Pulses Dorsalis Pedis Femoral Radial 2 1 2 Scale (0,1,2,3,4,d) Circulatory - Left Pulses Dorsalis Pedis Femoral Radial 2 1 Scale (0,1,2,3,4,d) Neurological State Oriented to time-place- Alert Moves all extremities person Respiration - General Respiration Rate SpO2 (%) (B/min) 15 97 Chronological Log Time Study Chronological Log 8:16:20 Patient arrived via Bed. 8:16:21 Patient Name, D.O.B, / Armband Verified By KristyN. 8:16:22 Consent signed by the physician and the patient and verified by the Aircraft Machinist staff. 8:16:23 Pre-op and post- op instructions given; patient acknowledges understanding of instructions. 8:16:23 Verbal Stimulation=2 Physical Stimulation=2 Airway=2 Respiration=2 TOTAL=8. (0=absent, 1=li mited, 2=present) 8:16:24 Presedation assessment performed by Aircraft Machinist RN. 8:16:28 Allens test performed on the right radial and ulnar artery. POSITIVE. 8:16:29 Immediate Presedation assesment performed by physician. 8:16:29 Patient has been NPO for More than 6Hrs. 8:16:30 Skin Breakdown- none per patient 8:16:30 Patient Warmer Placed on the Table. 8:16:31 Ashley [employer]ences Protected 8:16:33 A # 20 IV was noted in the Forearm (left). Grade = 0 Patient arrived on IV Solutions given by cathlab, cathlab in Left Antecubital via Peripheral IV . Pump/Drip Flow = 20 8:16:33 ml/hr using NaCl .9. Ordered by Familia Loyola Vitals capture started with the following parameters, Patient=Adult, Interval=5 min, Initial Pr yncouw=882 mmHg, 8:23:48 Deflation Rate=5 mmHg, Cuff placed on Left Arm Assessment: Initial Case, HR=63 BPM, Rhythm=nsr, FEAU=670/84 mmhg, Chest Pain=0, Edema=None, Ski n = Warm, Dry Right Pulses: Lakhwinder Ped=2, Femoral=1, Radial=2 8:23:51 Left Pulses: Lakhwinder Ped=2, Femoral=1 Neurological: State=Alert, Ox3, BROWER Respiration: Resp=15 B/min, SpO2=97 % 8:24:43 Reference ECG taken 8:25:05 HR=62 bpm, GNID=923/84 mmhg, SpO2=96.0 %, Resp=13 B/min, Pain=0, Dayron=9, Oakley=2 8:29:27 HR=62 bpm, UFGU=238/95 mmhg, SpO2=97.0 %, Resp=16 B/min, Pain=0, Dayron=9, Oakley=2 8:30:59 Right Radial and groin(s) prepped with 2% chlorhexidine, and draped after a 3 min. waiting t christina. 8:34:32 HR=62 bpm, QGSQ=881/91 mmhg, SpO2=97.0 %, Resp=15 B/min, Pain=0, Dayron=9, Oakley=2 8:36:01 MD paged 8:37:21 Pressure channel 2 zeroed. 8:37:53 MD responded 8:39:33 HR=62 bpm, RPMM=985/95 mmhg, SpO2=97.0 %, Resp=23 B/min, Pain=0, Dayron=9, Oakley=2 8:41:02 MD arrived. 8:41:17 Contrast Scanned 8:41:19 Immediate Presedation assesment performed by physician. 8:44:34 HR=59 bpm, WNZG=402/91 mmhg, SpO2=98.0 %, Resp=20 B/min, Pain=0, Dayron=9, Oakley=2 Time Out. Correct patient, correct procedure, correct physician, power injector not loaded with contrast with surgical 8:46:11 team present. Time Out Concurred by MD and individual staff in procedure. 8:46:27 Case Start 8:46:29 Verbal Stimulation=2 Physical Stimulation=2 Airway=2 Respiration=2 TOTAL=8. (0=absent, 1=rodarte ited, 2=present) 8:47:04 3 mL 1% XYLOCAINE given in lab by Familia Loyola in Right Radial via Subcutaneous. 8:48:05 Access site was Right Radial Artery. A SHEATH, FR6 TRANSRADIAL SLENDER 10CM FR 6 was advanced into the Radial (right) using the Mauricio ca 8:48:12 technique. 5 mL (Bolus) RADIAL COCKTAIL given in lab by Familia Loyola in Right Radial via Radial. Usi ng [Solution Name]. 8:48:20 Reason: Ntg 200mcg Verapamil 2.5mg Heparin 3000U. A JR 4.0 INFINITI CATHETER FR 5 was advanced over a wire. OMNIPAQUE, 350 MG, 150ML 150ML was use d for 8:49:28 injections. 8:49:35 HR=69 bpm, FIEU=233/77 mmhg, SpO2=99.0 %, Resp=15 B/min, Pain=0, Dayron=9, Oakley=2 Recorded Pressure: LV, HR=67, Condition=Condition 1 8:52:03 (Left Ventricle) LV 145/1/8 Recorded Pressure: LV, Ao, HR=66, Condition=Condition 1 8:52:20 (Left Ventricle) LV 147/3/7, (Aorta) Ao 146/74/102 8:52:33 The RCA was injected and visualized at various angles. OMNIPAQUE, 350 MG, 150ML 150ML used. Recorded Pressure: Ao, HR=66, Condition=Condition 1 8:53:04 (Aorta) Ao 150/76/106 After removing the current catheter a JL 3.5 INFINITI CATHETER FR 5 was advanced over a WIRE, EX CHANGE 260CM 8:54:19 3MMJ 260CM. 8:54:28 HR=64 bpm, YVBB=112/89 mmhg, SpO2=97.0 %, Resp=15 B/min, Pain=0, Dayron=9, Oakley=2 8:59:29 HR=62 bpm, IUBE=767/90 mmhg, SpO2=98.0 %, Resp=15 B/min, Pain=0, Dayron=9, Oakley=2 8:59:35 The LCA was injected and visualized at various angles. OMNIPAQUE, 350 MG, 150ML 150ML used. 9:04:35 HR=64 bpm, ROPS=740/91 mmhg, SpO2=98.0 %, Resp=15 B/min, Pain=0, Dayron=9, Oakley=2 9:05:10 Catheter was removed 4600 units HEPARIN given in lab by Hailee Pham, RN in Left Forearm via Peripheral IV. Ordered by Familia Loyola 9:06:45 G. A JR 4.0 GUIDE CATHETER FR 6 was advanced over a wire. OMNIPAQUE, 350 MG, 150ML 150ML was used for 9:06:50 injections. 9:09:50 HR=65 bpm, ZWHV=013/95 mmhg, ApG1=945.0 %, Resp=19 B/min, Pain=0, Dayron=9, Oakley=2 9:11:54 Pressure channel 2 zeroed. 9:15:57 HR=63 bpm, GKLN=915/96 mmhg, SpO2=98.0 %, Resp=16 B/min, Pain=0, Dayron=9, Oakley=2 9:16:14 A PRIME WIRE, VERRATA 185CM 185CM was inserted via Radial (right). 9:19:40 HR=63 bpm, YEKG=442/100 mmhg, SpO2=97.0 %, Resp=16 B/min, Pain=0, Dayron=9, Oakley=2 9:19:57 Interventional wire has crossed the lesion 140.043 mcg/kg/min ADENOSINE DRIP given in lab by Hailee Pham RN in Left Forearm via Periph eral IV. 9:20:23 Pump/Drip Flow = 647 ml/hr using NaCl .9 with a concentration of 90 mg in 90 ml. Ordered by Familia Spears 9:20:30 Flow Wire was was placed in the RCA Mid. The FFR measures 91 percent. The IFR measures ~IFR ~ Percent. 0 units/hr ADENOSINE DRIP STOPPED given in lab by Hailee Pham RN in Left Forearm via Periph eral IV. Pump/Drip 9:22:40 Flow = 0 ml/hr using D5W. Ordered by Familia Loyola 9:23:12 Wire removed 9:24:26 Catheter was removed Assessment: Initial Case, HR=67 BPM, Rhythm=nsr, TCLR=620/93 mmhg, Chest Pain=0, Edema=None, Sk in = Warm, Dry Right Pulses: Lakhwinder Ped=2, Femoral=1, Radial=2 9:24:36 Left Pulses: Lakhwinder Ped=2, Femoral=1 Neurological: State=Alert, Ox3, BROWER Respiration: Resp=15 B/min, SpO2=97 % Radial Compression Device Used. 11 mLs of air placed in BAND, RADIAL COMPRESSION TR LARGE 29 29 CM. Affected 9:25:15 hand 95 % O2 saturation. 9:25:16 HR=67 bpm, YMNV=418/93 mmhg, SpO2=94.0 %, Resp=16 B/min, Pain=0, Dayron=9, Oakley=2 9:25:16 No case complications noted. 9:25:17 Cine recording checked. 9:25:21 Bedside Report will be given. 9:25:22 Contrast Scanned 9:25:24 Verbal Stimulation=2 Physical Stimulation=2 Airway=2 Respiration=2 TOTAL=8. (0=absent, 1=li mited, 2=present) 9:25:47 A Left Heart Cath was performed. 9:29:38 HR=62 bpm, ZWNV=237/98 mmhg, SpO2=96.0 %, Resp=16 B/min, Pain=0, Dayron=9, Oakley=2 9:34:05 Patient moved to stretcher 9:34:07 Vitals capture stopped. End Study - Contrast Media Used In Study Contrast Total Opened (mL) Total Used (mL) Total Wasted (mL) Omnipaque 100 100 0 End Study - Maximum Contrast Load Max Contrast Load (mL) 350.0 End Study - Radiation Exposure Fluoro Time (minutes) 6.0 End Study - Patient Disposition Complications Transferred To Interventional Outcome No Aircraft Machinist Holding No attempt made
[2017-01-03] MEDS ORDERED: MISC INFORMATION XX ONE (09:45)
[2017-01-03 09:57] VITALS: PULSE 59
--- NOTE | 2017-01-03 10:20 | MA ---
cc: FAMILIA BUCKLEY DO DATE OF PROCEDURE January 03, 2017 PROCEDURE Left heart catheterization, coronary angiogram, FFR RCA. PREPROCEDURE DIAGNOSIS Chest pain, abnormal stress test. POSTPROCEDURE DIAGNOSIS Moderate coronary artery disease. MEDICATIONS 1. Heparin 7600 units. 2. Nitro 200 mcg. 3. Verapamil 2.5 mg. 4. Adenosine drip for FFR. CONTRAST USED 100 cc. FLUOROSCOPY 6 minutes. MODERATE SEDATION 0 minutes. ESTIMATED BLOOD LOSS 10 cc. PROCEDURAL SUMMARY Jayden Wall is a 76-year-old male who presented to [facility] due to chest pain. He had recent stenting done in [place] within the past 3-6 months and was no longer on his medications because they were stolen. He underwent stress testing and it showed possible inferior septal ischemia. Because of this he was recommended cardiac catheterization. The risks, benefits and alternatives were explained to him and he consented as such. He was brought to the lab and prepped in the usual sterile fashion. Right radial artery was accessed using a modified Seldinger technique and placement of a 5/6-German Slender sheath. This was easily aspirated and flushed. The JR-4 was advanced over a J-wire to the ascending aorta and across the aortic valve for measurement of left ventricular pressure. This was pulled back across the aortic valve showing no significant gradient of aortic stenosis. JR-4 was used for selective angiography of the right coronary artery. This was exchanged out for a JL-3.5 which was used for selective angiography of the left coronary artery. Please see further procedure notes below. The guide was removed. The radial sheath was removed with a radial band placed over it for hemostasis. The patient left the laboratory sample carrier cardiovascularly stable. FINDINGS LEFT MAIN: Normal-sized vessel with 10-20% disease and adequate reflux. It bifurcates into an LAD and circumflex. 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 He gives off one major diagonal with mild luminal irregularities. LEFT CIRCUMFLEX: Normal-sized vessel with tortuosity throughout. It gives off two major obtuse marginals with a 30% disease in the first and mild luminal irregularities throughout the second obtuse marginal. RCA: Stent in the midportion is widely patent and just distal to this there is a 50% stenosis. Distally there are mild luminal irregularities but no significant disease. LVEDP 7. FFR Because of the patient's chest pain and abnormal stress test in the inferior septal portion, I felt that this needed be further investigated. The lesion distal to the stent appears to be at most 50%. The patient was given heparin as an additional anticoagulant. A JR-4 guide was then inserted and engaged into the right coronary artery. FFR wire was placed distally. The patient was given adenosine for 2 minutes with an FFR value of 0.90 showing nonsignificant stenosis. Wire and guide were removed. IMPRESSIONS 1. Mild to moderate coronary artery disease with a 50% lesion in the RCA and no other significant disease. 2. History of stent in the RCA. RECOMMENDATIONS 1. Mr. Wall has mild to moderate coronary artery disease and should continue on medical management. 2. Because of his stent which he believes was for myocardial infarction, he should stay on aspirin indefinitely and Plavix for least 12 months. 3. No further cardiovascular workup at this time. Thank you for allowing me to see Jayden Wall. If there are any questions, please do not hesitate to call. Familia Buckley DO VGP/SSB /9:49 AM /10:13 AM
[2017-01-03] MEDS ORDERED: IOHEXOL 350 MG/ML 100 ML BTL (for Cath Lab) OTHER ONE (11:03)
[2017-01-03 12:00] VITALS: BP 123/57; PULSE 91; RESP 20; TEMP 98.5; O2SAT 98
[2017-01-03] MEDS ORDERED: ASPI81 CHEW (13:07)
[2017-01-03] MEDS ORDERED: ATOR20TA15 PO (13:07)
[2017-01-03] MEDS ORDERED: AMLO10 PO (13:07)
[2017-01-03] MEDS ORDERED: NITR0.4S SL (13:07)
[2017-01-03] MEDS ORDERED: PANT40TA3 PO (13:07)
[2017-01-03] MEDS ORDERED: PLAV75TA29 PO (13:07)
[2017-01-03] MEDS ORDERED: CARV12.5 PO (13:07)
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
--- NOTE | 2017-01-03 13:53 | PD.CARD.PN ---
Subjective Subjective Remarks Patient resting comfortably Post-cath Objective Medications Current Medications Medications (Trade) Dose Ordered Sig/Muna Route Start Time Stop Time Status Last Admin (NS Flush) 2 ml BID IV FLUSH 12/29/16 21:00 01/01/17 07:47 (NS Flush) 2 ml UNSCH PRN IV FLUSH 12/29/16 15:30 (Nitrostat Sl) 0.4 mg Q5M PRN SL 12/29/16 15:45 (Tylenol) 500 mg Q4H PRN PO 12/29/16 15:30 01/02/17 08:28 (Morphine Inj) 2 mg Q5M PRN IV PUSH 12/29/16 16:00 (Coreg) 12.5 mg Q12HR PO 12/29/16 21:00 01/02/17 22:28 (Romazicon Inj) 0.2 mg Q1M PRN IV PUSH 12/29/16 16:45 (Ativan) 1 mg Q4H PRN PO 12/29/16 16:45 (Ativan Inj) 1 mg Q4H PRN IV PUSH 12/29/16 16:45 (Ativan) 2 mg Q2H PRN PO 12/29/16 16:45 (Ativan Inj) 2 mg Q2H PRN IV PUSH 12/29/16 16:45 (Ativan Inj) 2 mg Q1H PRN IV PUSH 12/29/16 16:45 (Ativan Inj) 2 mg Q15M PRN IV PUSH 12/29/16 16:45 (Protonix) 40 mg DAILY PO 12/29/16 16:45 01/02/17 08:27 (Catapres) 0.1 mg Q6H PRN PO 12/29/16 17:15 01/03/17 06:09 Potassium Chloride 10 meq/ Dextrose/Sodium Chloride 1,005 ml @ 50 mls/hr Q20H6M IV 12/31/16 10:00 01/02/17 23:46 (Imdur) 30 mg DAILY@07 PO 12/31/16 08:00 01/03/17 06:09 (Lipitor) 20 mg HS PO 12/31/16 21:00 01/02/17 22:28 (Aspirin Chew) 81 mg DAILY CHEW 01/01/17 09:00 01/02/17 08:28 (Plavix) 75 mg DAILY PO 01/01/17 09:00 01/02/17 08:27 (Norvasc) 10 mg DAILY PO 01/02/17 09:30 01/02/17 09:18 (Librium) 50 mg Q6H PRN PO 01/02/17 11:00 (Carey-Colace) 1 tab DAILY PO 01/02/17 16:15 01/02/17 16:47 Vital Signs / I&O Vital Signs Date Time Temp Pulse Resp B/P (MAP) Pulse Ox O2 Delivery O2 Flow Rate FiO2 01/03/17 12:00 98.5 91 20 123/57 (79) 98 01/03/17 09:57 59 01/03/17 09:45 96 Room Air 01/03/17 09:29 Nasal Cannula 2.00 01/03/17 04:00 97.6 61 16 179/82 (114) 97 01/03/17 00:00 99.0 65 18 146/65 (92) 94 01/02/17 20:21 97.6 65 18 144/67 (92) 95 01/02/17 19:57 66 01/02/17 19:44 Nasal Cannula 2.00 01/02/17 16:00 97.6 64 16 125/64 (84) 97 I/O 01/02/17 01/02/17 01/02/17 01/03/17 01/03/17 01/03/17 07:00 15:00 23:00 07:00 15:00 23:00 Intake Total 786.7 ml 960 ml 1495 ml Output Total 1000 ml 950 ml 1250 ml Balance -213.3 ml 10 ml 245 ml Intake Oral 960 ml 240 ml IV Total 786.7 ml 1255 ml Output Urine Total 1000 ml 950 ml 1250 ml # Voids 1 # Bowel Movements 0 Physical Exam GENERAL: Lethargic but awakens to questions SKIN: Warm and dry. HEAD: Atraumatic. Normocephalic. EYES: Pupils equal and round. No scleral icterus. No injection or drainage. ENT: No nasal bleeding or discharge. Mucous membranes pink and moist. NECK: Trachea midline. No JVD. CARDIOVASCULAR: Regular rate and rhythm. RESPIRATORY: No accessory muscle use. Clear to auscultation. Breath sounds equal bilaterally. GASTROINTESTINAL: Abdomen soft, non-tender, nondistended. Hepatic and splenic margins not palpable. MUSCULOSKELETAL: Extremities without clubbing, cyanosis, or edema. No obvious deformities. NEUROLOGICAL: No obvious cranial nerve deficits. Motor grossly within normal limits. Five out of 5 muscle strength in the arms and legs. Normal speech. Still with asterixis Assessment and Plan Problem List: (1) Abnormal stress test ICD Codes: R94.39 - Abnormal result of other cardiovascular function study (2) Chest pain ICD Codes: R07.9 - Chest pain, unspecified Status: Acute (3) Hypertensive urgency ICD Codes: I16.0 - Hypertensive urgency (4) EtOH dependence ICD Codes: F10.20 - Alcohol dependence, uncomplicated Assessment and Plan 1) Cardiac catheterization showing moderate CAD 2) Ativan/Librium for withdrawal per primary team 3) Hx of CAD with stenting Con't ASA/Plavix 4) No further cardiovascular work up at this time Problem Qualifiers (1) Chest pain: Qualified Codes: R07.9 - Chest pain, unspecified Familia Loyola DO Jan 03, 2017 13:53
[2017-01-03] MEDS: CLOPIDOGREL 75 MG TAB PO SCH (14:41)
[2017-01-03] MEDS: DOCUSATE SODIUM 50 MG/SENNA 8.6 MG TAB PO SCH (14:42)
[2017-01-03] MEDS: SODIUM CHLORIDE 0.9% FLUSH 10 ML FLUSH IV FLUSH SCH (14:42)
[2017-01-03] MEDS: PANTOPRAZOLE SOD 40 MG DELAYED RELEASE TAB PO SCH (14:42)
[2017-01-03] MEDS: ACETAMINOPHEN 500 MG CPLT PO PRN (14:42)
[2017-01-03] MEDS: ASPIRIN 81 MG CHEW TAB CHEW SCH (14:42)
[2017-01-03] MEDS ORDERED: ISOS30TA3 PO (15:10)
[2017-01-03] MEDS: POTASSIUM CHLORIDE INJ 10 MEQ in DEXT 5%-NACL 0.9% 1000 ML INJ 1,000 ML IV SCH (15:53)
[2017-01-03] MEDS ORDERED: MILKSUS PO (15:59)
[2017-01-03] MEDS ORDERED: COLA100C5 PO (15:59)
[2017-01-03] MEDS ORDERED: SOD PHOSPHATE/SOD BIPHOSPHATE (ADULT) ENEMA 133ML RECTAL ONE (16:00)
== END 2017-01-03 18:29 | DRG 287 ==
LOC: NEPC 10:03 → NEDA 12:40 → OBSVTOIN 18:05 → N04A 19:51
PROVIDERS: ADMIT Family Medicine; ATTEND Family Medicine
PROC: B2111ZZ Fluoroscopy of Multiple Coronary Arteries using Low Osmolar Contrast (ICD-10-PCS; 2017-01-03)
PROC: 4A033BC Measurement of Arterial Pressure, Coronary, Percutaneous Approach (ICD-10-PCS; 2017-01-03)
PROC: 4A023N7 Measurement of Cardiac Sampling and Pressure, Left Heart, Percutaneous Approach (ICD-10-PCS; principal; 2017-01-03 12:15)
DX: I16.0 Hypertensive urgency (principal); F10.231 Alcohol dependence with withdrawal delirium; I25.10 Atherosclerotic heart disease of native coronary artery without angina pectoris; R94.39 Abnormal result of other cardiovascular function study; I25.2 Old myocardial infarction; I10 Essential (primary) hypertension; T46.5X6A Underdosing of other antihypertensive drugs, initial encounter; F32.9 Major depressive disorder, single episode, unspecified; F17.210 Nicotine dependence, cigarettes, uncomplicated; Y90.6 Blood alcohol level of 120-199 mg/100 ml; Z59.0 Homelessness; Z91.138 Patient's unintentional underdosing of medication regimen for other reason; Z82.49 Family history of ischemic heart disease and other diseases of the circulatory system; Z95.5 Presence of coronary angioplasty implant and graft
CPT/HCPCS: 71010; 78452; 80048; 80053; 80061; 80307; 82550; 83735; 84484; 85025; 85610; 85730; 93005; 93017; 93306; 93458; 99285; A9502; C1769; C1893; J0153; J0360; J1644; J2060; J2250; J2785; J3010; J3480; J7042; Q9967